=== PATIENT | female | born 1945 | race Caucasian/White ===

== ENCOUNTER → 2018-04-09 | Outpatient (CLI) | payer OTHER ==
[~2018-04-09] MED LIST: ASPIR 8181 MG PO; AZITHROMYCIN 2250 MG PO; FLEXERIL PO; LAMISIL AT15 GM TP; LASIX 40 MG TAB40 M2 PO; PERCOCET 5-3251 EACH PO; PROPRANOLOL 1010 MG PO; PROTONIX 20 MG20 M1 PO; SERTRALINE HCL50 MG PO; SIMVASTATIN40 MG PO; TUSSIONEX PENN473 ML PO; VALACYCLOVIR500 MG PO; VENTOLIN HFA 1818 GM INH; ZYRTEC 10 MG TA10 MG PO; ZYRTEC10 MG PO
--- NOTE | 2018-04-09 14:23 | EXE ---
[place] [address] STRESS ECHOCARDIOGRAM Name: FARTUN GAMINO Room: [facility]#: [id number] Admission: 04/09/18 Attend Phys: Tamia Esteban Discharge: Date of : 47 Date of Service: 04/09/18 1422 Report #: [id number] THIS REPORT FOR: //name// APPROVED REPORT Study performed: 04/09/2018 12:03:55 Exam: Dobutamine Stress Echo Indication: ABN EKG Patient Location: Out-Patient Stress Nurse: Karla Torres RN Supervising Physician: Dwain Agarwal MD Ht: 5 ft 7 in HR: 71 bpm BP: 126/64 mmHg Medical History Cardiac Risk Factors: HTN, Hyperlipidemia, Tobacco History (Former) Procedure The patient underwent a Pharmacological Stress Test using Dobutamine. Blood pressure, heart rate, and EKG were monitored. An Echocardiogram was performed by setup technician in four stages in quad fashion. At peak stress, four selected images were obtained and placed side by side with resting images for comparison. Stress Test Details Stress Test: Pharmacological stress testing performed using 30 mcg/kg/min of Dobutamine. Reason for pharmacologic stress test: physical limitation. HR Resting HR: 71 bpm Max Heart Rate (APMHR): 148 bpm Max HR Achieved: 132 bpm Target HR (85% APMHR): 125 bpm % of APMHR: 89 Recovery HR: 82 bpm HR response to stress: Normal HR response to stress BP Resting BP: 126/64 mmHg Max BP: 185/67 mmHg Recovery BP: 128/62 mmHg ECG [address] [address] STRESS ECHOCARDIOGRAM Name: FARTUN GAMINO Room: [facility]#: [id number] Admission: 04/09/18 Attend Phys: Tamia Esteban Discharge: Date of : 47 Date of Service: 04/09/18 1422 Report #: [id number] Resting ECG: Sinus Rhythm Stress ECG: Sinus Tachycardia ST Change: None Arrhythmia: None Recovery ECG: Sinus Rhythm Recovery ST Change: None Recovery Arrhythmia: None Clinical The patient tolerated standard Agustin protocol exercise without significant symptoms. Stress ECG Conclusion The baseline 12-lead EKG showed sinus rhythm without significant ST or T wave changes. EKGs obtained during and post exercise showed sinus rhythm and sinus tachycardia with no significant ST or T wave changes when compared to baseline. There were no stress-induced arrhythmias. Pre-Stress Echo The resting Echocardiogram showed normal left ventricular contractility with an estimated Ejection Fraction of about 60-65%. Post-Stress Echo The stress Echocardiogram showed normal left ventricular contractility with an estimated Ejection Fraction of about >70%. Clinical No clinical or ECG evidence for ischemia. Conclusion Clinical Response: Non-ischemic Exercise Capacity: Average Stress ECG Response: Non-ischemic Stress Echo Images: Non-ischemic The left ventricle is normal in size and wall thickness in both the rest and stress images. Other Information Study Quality: Fair <Conclusion> [place] [address] STRESS ECHOCARDIOGRAM Name: FARTUN AGMINO Room: [facility]#: [id number] Admission: 04/09/18 Attend Phys: Tamia Esteban Discharge: Date of : 47 Date of Service: 04/09/181421 Report #: [id number] The left ventricle is normal in size and wall thickness in both the rest and stress images. <ELECTRONICALLY SIGNED> By: Dwain Agarwal MD, FACC 04/09/181421 21 21 Dwain Agarwal MD, FACC /INF
== END ==
LOC: M.CRD 10:15
DX: R94.31 Abnormal electrocardiogram [ECG] [EKG] (principal)

== ENCOUNTER → 2019-01-17 | Outpatient (CLI) | payer OTHER ==
[~2019-01-17] MED LIST changes: +EXCEDRIN CAPLE1 EACH PO; +FISH OIL 1,001000 M2 PO; +PROBIOTIC1 EAC1 PO; +PROPRANOLOL 8080 MG PO; +PROTONIX40 M1 PO; +ZOLOFT50 MG PO
== END ==
LOC: M.MRI 16:45
DX: S83.242A Other tear of medial meniscus, current injury, left knee, initial encounter (principal); M17.12 Unilateral primary osteoarthritis, left knee; M25.762 Osteophyte, left knee; X58.XXXA Exposure to other specified factors, initial encounter; Y93.89 Activity, other specified; Y92.89 Other specified places as the place of occurrence of the external cause; Y99.8 Other external cause status

== ENCOUNTER 2019-02-11 07:59 | Inpatient (IN) | payer OTHER ==
[2019-01-23 06:10] LABS: HEMATOCRIT 37.6 % (37.0-47.0); HEMOGLOBIN 12.1 gm/dL (12.0-15.0); MCH 26.5 pg (26.0-34.0); MCHC 32.1 g/dL (28.0-37.0); MCV 82.5 fL (80.0-100.0); MPV 8.5 fl. (7.2-11.1); RBC 4.55 mil/uL (4.20-5.00); RDW-CV 15.3 % (10.5-14.5); WBC 6.6 thou/uL (4.0-11.0)
[2019-01-23 06:20] LABS: PROTIME 9.8 Seconds (9.20-11.50)
[2019-01-23 06:23] LABS: URINE BILIRUBIN NEGATIVE (Negative); URINE BLOOD TRACE (Negative); URINE CLARITY CLEAR; URINE COLOR YELLOW; URINE GLUCOSE-RANDOM NEGATIVE (Negative); URINE KETONES NEGATIVE (Negative); URINE LEUKOCYTES-REFLEX 1+ (Negative); URINE NITRITE-REFLEX NEGATIVE (Negative); URINE PROTEIN NEGATIVE (Negative); URINE SPECIFIC GRAVITY 1.025 (1.005-1.030); URINE UROBILINOGEN 0.2 E.U./dl (0.2-1.0)
[2019-01-23 06:24] LABS: ALBUMIN 3.4 g/dL (3.4-5.0); CALCIUM 9.2 mg/dL (8.5-10.1); CREATININE 0.9 mg/dL (0.6-1.3); POTASSIUM 3.3 mmol/L (3.5-5.1); TOTAL BILIRUBIN 0.2 mg/dL (<0.1-1.0); TOTAL PROTEIN 7.4 g/dL (6.4-8.2)
[2019-01-23 06:49] LABS: CASTS None Seen /LPF (None Seen); CRYSTALS None Seen /LPF (None Seen); MUCUS 0-3 Light strn/LPF (None Seen); SQUAMOUS 4-10 Moderate /LPF (0-3); URINE RBC 0-2 Rare /HPF (0-2)
--- NOTE | 2019-01-23 11:24 | EKG ---
[place] [address] ELECTROCARDIOGRAM REPORT Name: FARTUN GAMINO Room: PRE IN [facility]#: [id number] Admission: Attend Phys: Jenny Vanegas Discharge: Date of : 47 Report #: [id number] THIS REPORT FOR: //name// [facility] Test Date: 2019-01-23 Test Time: 06:27:55 Pat Name: FARTUN GAMINO Department: Room: Gender: F Freight Forwarder: LEEANNE : 1945 Requested By: Duncan Golden Order Number: [id number] Reading MD: Trent Roberts Measurements Intervals [place] Rate: 70 P: 52 MD: 154 QRS: 22 QRSD: 109 T: 1 QT: 423 QTc: 457 Interpretive Statements Sinus rhythm Consider RVH w/ secondary repol abnormality No previous ECG available for comparison Electronically Signed On 01-23-2019 11:23:52 CDT by Trent Roberts [email or web address] <ELECTRONICALLY SIGNED> By: Trent Roberts MD, [facility] 01/23/19 1123 0627 6 Trent Roberts MD, FACC /EPI
[~2019-02-11] VITALS: Ht 170.2 cm; Wt 129.3 kg
[2019-02-11 10:45] VITALS: BP 153/59
[2019-02-11 16:03] VITALS: BP 151/69
[2019-02-11 16:30] VITALS: BP 140/69
[2019-02-11 19:50] VITALS: BP 122/54
[2019-02-11 23:54] VITALS: BP 119/42
[2019-02-12 03:42] LABS: HEMATOCRIT 33.3 % (37.0-47.0); MCH 27.3 pg (26.0-34.0); MCV 82.8 fL (80.0-100.0); MPV 9.1 fl. (7.2-11.1); NUCLEATED RBCS 0 /100WBC; PLATELET COUNT* 218 thou/uL (150-400); RBC 4.02 mil/uL (4.20-5.00); WBC 8.9 thou/uL (4.0-11.0)
[2019-02-12 03:49] LABS: CALCIUM 8.6 mg/dL (8.5-10.1); CREATININE 0.7 mg/dL (0.6-1.3); MAGNESIUM 2.1 mg/dL (1.8-2.4); POTASSIUM 3.9 mmol/L (3.5-5.1)
[2019-02-12 04:00] VITALS: BP 123/46
[2019-02-12 05:18] LABS: ABSOLUTE LYMPHOCYTES 0.8 thou/uL (0.8-5.3); ABSOLUTE MONOCYTES 0.5 thou/uL (0.0-1.2); ABSOLUTE NEUTROPHILS 7.6 thou/uL (1.6-8.1); ANISOCYTOSIS 1+; PLATELET ESTIMATE ADEQUATE
[2019-02-12 05:19] LABS: POIKILOCYTOSIS 1+
[2019-02-12 07:30] VITALS: BP 118/47
[2019-02-12 16:00] VITALS: BP 124/68
[2019-02-13 01:16] LABS: HEMATOCRIT 31.9 % (37.0-47.0); HEMOGLOBIN 10.3 gm/dL (12.0-15.0)
[2019-02-13 02:06] LABS: GLYCOHEMOGLOBIN (HGB A1C) 5.8 % (4.8-5.6)
[2019-02-13 08:10] VITALS: BP 157/58
[2019-02-13 09:42] VITALS: BP 124/68
[2019-02-13 11:26] LABS: HEMATOCRIT 33.9 % (37.0-47.0); HEMOGLOBIN 10.9 gm/dL (12.0-15.0); MCH 26.8 pg (26.0-34.0); MCHC 32.3 g/dL (28.0-37.0); MCV 82.9 fL (80.0-100.0); MPV 8.7 fl. (7.2-11.1); RBC 4.08 mil/uL (4.20-5.00); RDW-CV 15.1 % (10.5-14.5); WBC 9.3 thou/uL (4.0-11.0)
[2019-02-13 11:55] LABS: CALCIUM 8.7 mg/dL (8.5-10.1); CREATININE 0.7 mg/dL (0.6-1.3); POTASSIUM 3.8 mmol/L (3.5-5.1)
[2019-02-13 16:49] VITALS: BP 111/41
[2019-02-13 18:19] LABS: URINE BILIRUBIN NEGATIVE (Negative); URINE BLOOD NEGATIVE (Negative); URINE CLARITY CLEAR; URINE COLOR YELLOW; URINE GLUCOSE-RANDOM NEGATIVE (Negative); URINE KETONES NEGATIVE (Negative); URINE LEUKOCYTES-REFLEX NEGATIVE (Negative); URINE NITRITE-REFLEX NEGATIVE (Negative); URINE PROTEIN TRACE (Negative); URINE SPECIFIC GRAVITY 1.025 (1.005-1.030); URINE UROBILINOGEN 0.2 E.U./dl (0.2-1.0)
[2019-02-13 20:35] VITALS: BP 153/57
[2019-02-14 04:00] VITALS: BP 112/40
[2019-02-14 08:00] VITALS: BP 116/46
[2019-02-14 08:17] VITALS: BP 116/46
[2019-02-14] MEDS ORDERED: XARELTO10 M1 PO (09:41)
[2019-02-14] MEDS ORDERED: PERCOCET PO (09:41)
[2019-02-14] MEDS ORDERED: SENNA S TABLET1 EACH PO (09:48)
--- NOTE | 2019-02-19 15:25 | OP ---
[facility] [address] [place] [address] OPERATIVE REPORT Name: FARTUN GAMINO Room: [address] [place] .R.#: [id number] Admission: 02/11/19 Attend Phys: Jenny Vanegas Discharge: 02/14/19 Date of : 47 Report #: [id number] THIS REPORT FOR: //name// CC: Sai Lunsford DATE OF SERVICE: 02/11/2019 PREOPERATIVE DIAGNOSIS: Right knee osteoarthritis. POSTOPERATIVE DIAGNOSIS: Right knee osteoarthritis. PROCEDURE: Right total knee arthroplasty. ANESTHESIA: General endotracheal with adductor canal block. ESTIMATED BLOOD LOSS: 50 mL. ANTIBIOTICS: Ancef preoperatively. DRAINS: Medium Hemovac. COMPLICATIONS: None. DISPOSITION: Stable to recovery room. IMPLANTS: Listed in the operative record and progress note. BRIEF HISTORY: The patient was seen in the preoperative area. Preoperative H and P was performed. Site was marked, questions were answered. Risks and benefits were discussed in detail about surgery. The patient wished to proceed assuming all risks. DESCRIPTION OF PROCEDURE: The patient was taken to the operating suite and placed supine on the operative table, given appropriate anesthesia. A well-padded tourniquet was applied to the upper thigh, which was inflated to 300 mmHg after gravity exsanguination. The operative knee was sterilely prepped and draped. Surgery began by midline incision. This was carried down through subcutaneous tissues. A medial parapatellar arthrotomy was performed down to the bone. The patella was then everted and excess soft tissue was removed from around the femur. The femoral cutting block was then applied, checked with a drop gaurav for rotational alignment, pinned in appropriate position and appropriate cuts were made. A 4-in-1 cutting block was then applied, checked for rotational alignment, pinned in appropriate position and appropriate cuts were made. The tibia was then exposed. Excess meniscus was removed. Retractor [facility] [address] [place] [address] OPERATIVE REPORT Name: GAMINOFARTUN J Room: [address] [place] ..#: [id number] Admission: 02/11/19 Attend Phys: Jenny Vanegas Discharge: 02/14/19 Date of : 47 Report #: [id number] was placed along the collateral ligaments. The tibial cutting block was then applied in appropriate position, checked with a drop gaurav for rotational alignment and slope and appropriate cut was made. The tibial bone was removed. The tibial base plate was then applied, checked with rotational alignment with the drop gaurav and pinned in appropriate position. Femur was then applied and a box cut was reamed. This was then trialed with appropriate spacer, which showed excellent fit and fill and excellent stability of the knee throughout all range of motion. The patella was then reamed in appropriate fashion and sized to appropriate size. Three PEG holes were drilled. It was then trialed and found to have excellent flexion and extension and excellent tracking within the groove. These trials were removed. The tibia was punched in appropriate fashion. Bone ends were cleansed with Pulsavac irrigation and cement was mixed and applied to the final implants. These were malleted in position, held the knee in extension and compressed to allow cement to cure. After it cured, excess was removed utilizing a Marshall and osteotome. The wound was then copiously irrigated. The final spacer was then malleted in position. Tourniquet was deflated. Hemostasis was maintained with electrocautery. Pain cocktail was injected. PRP gel sprayed throughout the internal aspects of the knee. A medium Hemovac drain was applied. The capsule was closed with #2 FiberWire and #1 Vicryl in [id number] fashion. Skin was closed with 2-0 Vicryl and running 3-0 Monocryl. Dermabond and sterile dressing was applied. Marvin wrap and PolarCare applied. The patient transported to recovery room in stable condition. Counts were correct throughout the procedure. <ELECTRONICALLY SIGNED> By: Duncan Golden II, DO 02/19/19 1525 0721 [id number] Golden II, DO /nt
== END 2019-02-14 12:21 | disposition home health service (06) | DRG 470 ==
LOC: M.PRE 07:59 → M.ORTHSURG 10:10 → M.TBA 10:10 → M.PRE 11:59 → M.ORTHSURG 13:40 → M.PRE 16:48 → M.ORTHSURG 02-14 12:21
PROVIDERS: Family Medicine; Orthopaedic Surgery; ADMIT Internal Medicine
PROC: 0SRD0J9 Replacement of Left Knee Joint with Synthetic Substitute, Cemented, Open Approach (ICD-10-PCS; principal; 2019-02-11)
DX: M17.12 Unilateral primary osteoarthritis, left knee (principal); K56.7 Ileus, unspecified; I10 Essential (primary) hypertension; E78.5 Hyperlipidemia, unspecified; K21.9 Gastro-esophageal reflux disease without esophagitis; T40.2X5A Adverse effect of other opioids, initial encounter; M81.0 Age-related osteoporosis without current pathological fracture; Z87.891 Personal history of nicotine dependence; Z91.041 Radiographic dye allergy status; Z90.49 Acquired absence of other specified parts of digestive tract; Z88.2 Allergy status to sulfonamides; Z79.899 Other long term (current) drug therapy; Y92.89 Other specified places as the place of occurrence of the external cause

== ENCOUNTER → 2019-08-27 | Outpatient (CLI) | payer OTHER ==
[~2019-08-27] MED LIST changes: +PERCOCET PO; +SENNA S TABLET1 EACH PO; +XARELTO10 M1 PO
--- NOTE | 2019-08-27 10:19 | 2DMMODE ---
[place] [address] 2 D/M-MODE ECHOCARDIOGRAM Name: FARTUN GAMINO Room: [facility]#: [id number] Admission: 08/27/19 Attend Phys: DIOGO PERKINS Discharge: Date of : 47 Date of Service: 08/27/19 1018 Report #: [id number] THIS REPORT FOR: //name// APPROVED REPORT Study performed: 08/27/2019 09:05:19 EXAM: Comprehensive 2D, Doppler, and color-flow Echocardiogram Patient Location: Out-Patient BSA: 2.33 HR: 72 bpm BP: 140/82 mmHg Other Information Study Quality: Fair Indications Elevated BNP 2D Dimensions IVSd: 14.49 (7-11mm) LVOT Diam: 20.17 (18-24mm) LVDd: 48.71 mm PWd: 11.43 (7-11mm) Ascending Ao: 26.52 (22-36mm) LVDs: 26.73 (25-40mm) Aortic Root: 29.04 mm Volumes Left Atrial Volume (Systole) LA ESV Index: 16.50 mL/m2 Aortic Valve AoV Peak Perez.: 1.01 m/s AO Peak Gr.: 4.12 mmHg LVOT Max P.72 mmHg AO Mean Gr.: 2.32 mmHg LVOT Mean P.46 mmHg LVOT Max V: 0.82 m/s AO V2 VTI: 25.83 cm LVOT Mean V: 0.56 m/s NIMA (VTI): 2.75 cm2 LVOT V1 VTI: 22.24 cm Mitral Valve E/A Ratio: 1.28 MV Decel. Time: 147.11 ms MV E Max Perez.: 0.73 m/s MV PHT: 42.66 ms MVA (PHT): 5.16 [place]2 [place] [address] 2 D/M-MODE ECHOCARDIOGRAM Name: FARTUN GAMINO [id number] Admission: 08/27/19 Attend Phys: DIOGO PERKINS Discharge: Date of : 47 Date of Service: 08/27/19 1018 Report #: [id number] TDI E/Lateral E': 8.11 E/Medial E': 6.08 Medial E' Perez.: 0.12 m/s Lateral E' Perez.: 0.09 m/s Pulmonary Valve PV Peak Perez.: 1.06 m/s PV Peak Gr.: 4.52 mmHg Tricuspid Valve RAP Estimate: 5.00 mmHg TR Peak Gr.: 25.73 mmHg RVSP: 30.73 mmHg PA Pressure: 30.73 mmHg Left Ventricle The left ventricle is normal size. There is normal LV segmental wall motion. Mild concentric left ventricular hypertrophy. Left ventricular systolic function is normal. The left ventricular ejection fraction is within the normal range. LVEF is 55-60%. The left ventricular diastolic function is normal. Right Ventricle The right ventricle is normal size. The right ventricular systolic function is normal. Atria The left atrium size is normal. The right atrium size is normal. Aortic Valve The aortic valve is not well visualized. trace aortic regurgitation is present. There is no aortic valvular stenosis. Mitral Valve The mitral valve is normal in structure. There is trace mitral valve regurgitation noted. No evidence of mitral valve stenosis. Tricuspid Valve The tricuspid valve is normal in structure. Mild tricuspid regurgitation. estimated pa pressure 30 mm Hg Pulmonic Valve Pulmonic valve is not well visualized. There is no pulmonic valvular regurgitation[place] [address] 2 D/M-MODE ECHOCARDIOGRAM Name: FARTUN GAMINO Radha Room: [facility]#: [id number] Admission: 08/27/19 Attend Phys: DIOOG PERKINS Discharge: Date of : 47 Date of Service: 08/27/19 1018 Report #: [id number] The aortic root is normal in size. IVC is normal in size and collapses >50% with inspiration. Pericardium There is no pericardial effusion. <Conclusion> Mild concentric left ventricular hypertrophy. LVEF is 55-60%. <ELECTRONICALLY SIGNED> By: Angel Lubin MD, FACC 08/27/19 1018 1018 1018 Angel Lubin MD, FAC /INF
== END ==
LOC: M.CRD 08:39
DX: I36.1 Nonrheumatic tricuspid (valve) insufficiency (principal)

== ENCOUNTER 2020-05-31 14:49 | Emergency (ER) | payer OTHER ==
[~2020-05-31] VITALS: Ht 170.2 cm; Wt 128.8 kg
[2020-05-31] MEDS ORDERED: DICLOFENAC SOD50 M1 PO (15:02)
[2020-05-31] MEDS ORDERED: NORCO 5-325 TA1 EAC2 PO ×2 (16:09→17:15)
[2020-05-31] MEDS ORDERED: ONDANSETRON HCL4 M3 PO (17:12)
[2020-05-31 17:44] VITALS: BP 150/70
== END 2020-05-31 17:45 | disposition home or self-care (01) ==
LOC: M.ERS 14:49
DX: S42.212A Unspecified displaced fracture of surgical neck of left humerus, initial encounter for closed fracture (principal); M25.552 Pain in left hip; I10 Essential (primary) hypertension; K58.9 Irritable bowel syndrome, unspecified; K21.9 Gastro-esophageal reflux disease without esophagitis; E78.5 Hyperlipidemia, unspecified; Z90.49 Acquired absence of other specified parts of digestive tract; Z98.51 Tubal ligation status; Z98.890 Other specified postprocedural states; Z96.652 Presence of left artificial knee joint; Z91.041 Radiographic dye allergy status; Z88.2 Allergy status to sulfonamides; Z91.018 Allergy to other foods; W18.39XA Other fall on same level, initial encounter; Y93.89 Activity, other specified; Y92.89 Other specified places as the place of occurrence of the external cause; Y99.8 Other external cause status

== ENCOUNTER → 2020-06-02 | Outpatient (CLI) | payer OTHER ==
[~2020-06-02] MED LIST changes: +DICLOFENAC SOD50 M1 PO; +NORCO 5-325 TA1 EAC2 PO; +ONDANSETRON HCL4 M3 PO
== END ==
LOC: M.CT 14:39
PROVIDERS: ATTEND Orthopaedic Surgery
DX: S42.202A Unspecified fracture of upper end of left humerus, initial encounter for closed fracture (principal); M85.812 Other specified disorders of bone density and structure, left shoulder; Q25.49 Other congenital malformations of aorta; X58.XXXA Exposure to other specified factors, initial encounter; Y93.89 Activity, other specified; Y92.89 Other specified places as the place of occurrence of the external cause; Y99.8 Other external cause status

== ENCOUNTER → 2020-06-07 | Outpatient (CLI) | payer OTHER ==
[~2020-06-07] MED LIST changes: +ACETAMINOPHEN1 EACH PO; +VITAMIN D350 MCG PO
== END ==
LOC: M.LAB 13:15
PROVIDERS: ATTEND Orthopaedic Surgery
DX: U07.1 COVID-19 (principal)

== ENCOUNTER → 2020-06-09 | Outpatient (CLI) | payer OTHER | LOC: M.LAB 14:45 | PROVIDERS: ATTEND Orthopaedic Surgery | DX: S42.292A Other displaced fracture of upper end of left humerus, initial encounter for closed fracture (principal); X58.XXXA Exposure to other specified factors, initial encounter; Y93.89 Activity, other specified; Y92.89 Other specified places as the place of occurrence of the external cause; Y99.8 Other external cause status ==

== ENCOUNTER → 2020-06-16 | Day surgery (SDC) | payer OTHER ==
--- NOTE | ~2020-06-16 | OP ---
[address] [address] OPERATIVE REPORT Name: FARTUN GAMINO Room: [facility]#: [id number] Admission: 06/16/20 Attend Phys: Duncan Golden II Discharge: Date of : 47 Report #: [id number] THIS REPORT FOR: //name// cc: Manuel Richard MD, Tuongvan T. MD ~ CC: Duncan Richard DATE OF SERVICE: 06/16/2020 PREOPERATIVE DIAGNOSIS: Left proximal humerus fracture. POSTOPERATIVE DIAGNOSIS: Left proximal humerus fracture. PROCEDURE: Open reduction and internal fixation of left proximal humerus fracture. SURGEON: Duncan Golden II, DO SHANK CARRIER: GOVIND Panchal. ANESTHESIA: Per operative record. ESTIMATED BLOOD LOSS: Minimal. ANTIBIOTICS: Per operative record. DRAINS: None. COMPLICATIONS: None. CONDITION OF THE PATIENT: Stable to recovery room. ESTIMATED BLOOD LOSS: ____ 50 mL. BRIEF HISTORY: The patient was previously seen in the clinic after her fracture and had been in the ER prior to that, she was scheduled for surgery, had been COVID tested and that test was positive. At that time, the patient discussed continuation of surgery or holding off, the patient elected to hold off due to concern over possible breathing issues due to COVID. She was delaying the surgery and was warned of the risks. The patient did proceed with surgery at this time and that was warned of risks of nonunion, malunion as well as hardware failure including but not limited to , heart attack, stroke, infection, blood clots, pulmonary embolus as well as risks of neurovascular, risk of anesthesia. The patient is assuming all risks and wished to proceed. [address] [address] OPERATIVE REPORT Name: FARTUN GAMINO Room: [facility]#: [id number] Admission: 06/16/20 Attend Phys: Duncan Golden II Discharge: Date of : 47 Report #: [id number] DESCRIPTION OF PROCEDURE: The patient was taken to the operative suite and placed supine on the operating table, given appropriate anesthesia. The patient was then placed in modified beach chair position. All bony prominences were well padded. Left shoulder was sterilely prepped and draped. Surgery began by an anterior incision over the left shoulder and carried down to the subcutaneous tissues. A deltopectoral approach was then performed down to the fracture site. This fracture was then visualized utilizing C-arm and fluoroscopic guidance. This then manipulated several fracture fragments back into place and held with K-wire fixation. The plate was then placed over the lateral aspect of the humerus, it was then held utilizing reduction forceps. Images with fluoroscope were taken showing excellent anatomic reduction. Plate and screws were then affixed to the shoulder utilizing locking and nonlocking screws in appropriate fashion. Final images were taken with the C-arm in both internal and externally rotated views showing excellent placement of the plate with excellent position of the screws on fluoroscopic guidance. Final irrigation was then performed of the wound. The deltopectoral interval was then closed utilizing #1 Vicryl in [id number] fashion. Skin was closed with 2-0 Vicryl and running Monocryl stitch. Dermabond, sterile dressing and sling were applied. The patient transported to recovery room in stable condition. Counts were correct throughout the procedure. By: [id number] Golden II, DO /nt
[2020-06-16 08:39] LABS: HEMATOCRIT 34.8 % (37.0-47.0); HEMOGLOBIN 11.2 gm/dL (12.0-15.0); MCH 26.1 pg (26.0-34.0); MCHC 32.1 g/dL (28.0-37.0); MCV 81.3 fL (80.0-100.0); MPV 7.5 fl. (7.2-11.1); RBC 4.28 mil/uL (4.20-5.00); WBC 5.9 thou/uL (4.0-11.0)
[2020-06-16 08:47] LABS: CALCIUM 8.6 mg/dL (8.5-10.1); CREATININE 0.8 mg/dL (0.6-1.3); POTASSIUM 4.2 mmol/L (3.5-5.1)
--- NOTE | 2020-06-16 10:54 | EKG ---
[place] [address] ELECTROCARDIOGRAM REPORT Name: FARTUN GAMINO Room: [facility]#: [id number] Admission: 06/16/20 Attend Phys: Duncan Golden, Discharge: Date of : 47 Date of Service: 06/16/20817 Report #: [id number] THIS REPORT FOR: //name// [facility] Test Date: 2020-06-16 Test Time: 08:18:14 Pat Name: FARTUN GAMINO Department: Room: Gender: Plc Controls Engineer: : 1945 Requested By: Raheel Russell Order Number: [id number] Reading MD: Sai Juarez Measurements Intervals Moran Rate: 63 P: 48 KS: 157 QRS: 24 QRSD: 103 T: -3 QT: 427 QTc: 438 Interpretive Statements Sinus rhythm Low voltage, precordial leads Minor IVCD right Abnormal R-wave progression, early transition Nonspecific repol abnormality, diffuse leads Compared to ECG 01/23/2019 06:27:55 Low QRS voltage now present Electronically Signed On 06-16-2020 10:54:07 INDUSTRIAL PSYCHOLOGIST by Sai Juarez [email or web address] <ELECTRONICALLY SIGNED> By: Sai Juarez MD, FACC 06/16/20 1054 7 7 Sai Juarez MD, FAC /EPI
== END | disposition home or self-care (01) ==
LOC: M.SUR 06:01
PROVIDERS: Anesthesiology; ATTEND Orthopaedic Surgery
DX: S42.202A Unspecified fracture of upper end of left humerus, initial encounter for closed fracture (principal); I10 Essential (primary) hypertension; M19.90 Unspecified osteoarthritis, unspecified site; F32.9 Major depressive disorder, single episode, unspecified; E78.00 Pure hypercholesterolemia, unspecified; G43.909 Migraine, unspecified, not intractable, without status migrainosus; M81.0 Age-related osteoporosis without current pathological fracture; Z98.51 Tubal ligation status; Z98.890 Other specified postprocedural states; Z79.899 Other long term (current) drug therapy; X58.XXXA Exposure to other specified factors, initial encounter; Y93.89 Activity, other specified; Y92.89 Other specified places as the place of occurrence of the external cause; Y99.8 Other external cause status

== ENCOUNTER → 2021-05-06 | Outpatient (CLI) | payer OTHER | LOC: M.ULTRA 05-03 13:00 | PROVIDERS: ATTEND Nurse Practitioner Family | DX: R20.2 Paresthesia of skin (principal); M79.605 Pain in left leg; M79.604 Pain in right leg ==